=== PATIENT | female | born 1990 | race African-American/Black ===

== ENCOUNTER 2024-02-07 16:02 | Emergency (ER) | payer MEDICAID ==
[~2024-02-07] VITALS: Ht 172.7 cm; Wt 103.4 kg
[2024-02-07 16:12] VITALS: BP 144/87; O2SAT 97
[2024-02-07 16:54] VITALS: PULSE 78; RESP 16; TEMP 98.1
== END 2024-02-07 16:56 | disposition home or self-care (01) ==
LOC: ER 16:02
DX: T19.2XXA Foreign body in vulva and vagina, initial encounter (principal); W44.8XXA Other foreign body entering into or through a natural orifice, initial encounter
CPT/HCPCS: 99284